=== PATIENT | male | born 1995 | race Caucasian/White ===

== ENCOUNTER 2018-02-23 20:00 | Emergency (ER) | payer OTHER ==
[~2018-02-23] VITALS: Ht 175.3 cm; Wt 81.6 kg
[2018-02-23 20:09] VITALS: Ht 175.3 cm; Wt 81.6 kg
[2018-02-23 21:53] VITALS: BP 115/63
== END 2018-02-23 21:53 | disposition home or self-care (01) ==
LOC: ED 20:00
DX: S93.401A Sprain of unspecified ligament of right ankle, initial encounter (principal); W18.39XA Other fall on same level, initial encounter; Y93.89 Activity, other specified; Y92.89 Other specified places as the place of occurrence of the external cause; Y99.8 Other external cause status